=== PATIENT | female | born 1990 | race African-American/Black ===

== ENCOUNTER 2020-04-12 14:24 | Inpatient (IN) | payer SELFPAY ==
[2020-04-12 14:50] VITALS: BMI 22.1
[2020-04-12] MEDS ORDERED: SODIUM CHLORIDE 1,000 ML IV STA (15:15)
[2020-04-12 16:22] LABS: BASO % 0.8 % (0-2.0); EOS % 1.2 % (0-4.5); HEMATOCRIT 23.3 % (32.4-45.2); HEMOGLOBIN 7.4 GM/dL (10.7-15.3); LYMPH % 31.2 % (8-40); MCH 24.2 pg (25.7-33.7); MCHC 31.7 g/dl (32.0-36.0); MEAN CELL VOLUME 76.2 fl (80-96); MEAN PLT VOLUME 9.7 fl (7.5-11.1); MONO % 5.4 % (3.8-10.2); NEUT % 61.4 % (42.8-82.8); PLATELET COUNT 375 K/MM3 (134-434); RBC 3.06 M/mm3 (3.60-5.2); RDW 16.7 % (11.6-15.6); WHITE BLOOD COUNT 5.4 K/mm3 (4.0-10.0)
[2020-04-12 16:30] LABS: INR 0.94 (0.83-1.09); PROTHROMBIN TIME (PATIENT) 11.6 SEC (9.7-13.0)
[2020-04-12 16:34] LABS: POTASSIUM 4.9 mmol/L (3.5-5.1)
[2020-04-12 16:37] LABS: CALCIUM 8.9 mg/dL (8.5-10.1)
[2020-04-12 16:38] LABS: BLOOD UREA NITROGEN 12.1 mg/dL (7-18)
[2020-04-12 16:41] LABS: CREATININE 0.9 mg/dL (0.55-1.3)
[2020-04-12 16:43] LABS: BILIRUBIN,TOTAL 0.4 mg/dL (0.2-1); TOT PROT 8.5 g/dl (6.4-8.2)
[2020-04-13 08:12] LABS: HEMATOCRIT 27.3 % (32.4-45.2); HEMOGLOBIN 9.2 GM/dL (10.7-15.3); MCH 25.6 pg (25.7-33.7); MCHC 33.8 g/dl (32.0-36.0); MEAN CELL VOLUME 75.6 fl (80-96); MEAN PLT VOLUME 8.9 fl (7.5-11.1); PLATELET COUNT 323 K/MM3 (134-434); RBC 3.61 M/mm3 (3.60-5.2); RDW 17.3 % (11.6-15.6); WHITE BLOOD COUNT 6.9 K/mm3 (4.0-10.0)
[2020-04-13 08:27] LABS: POTASSIUM 4.1 mmol/L (3.5-5.1)
[2020-04-13 08:33] LABS: CALCIUM 8.4 mg/dL (8.5-10.1)
[2020-04-13 08:34] LABS: BLOOD UREA NITROGEN 10.4 mg/dL (7-18); MAGNESIUM 2.1 mg/dL (1.8-2.4)
[2020-04-13 08:37] LABS: CREATININE 0.8 mg/dL (0.55-1.3)
[2020-04-13] MEDS ORDERED: FERRIC CARBOXYMALTOSE 750 MG in SODIUM CHLORIDE 250 ML IVPB ONE (12:54)
[2020-04-13 18:37] VITALS: BP 124/62; PULSE 74; TEMP 97.9
== END 2020-04-13 16:25 | disposition home or self-care (01) | DRG 663 ==
LOC: JER 14:24 → JERBED 19:09
PROVIDERS: ADMIT Internal Medicine; ATTEND Internal Medicine
PROC: 30233N1 Transfusion of Nonautologous Red Blood Cells into Peripheral Vein, Percutaneous Approach (ICD-10-PCS; principal; 2020-04-12)
DX: D64.9 Anemia, unspecified (principal); N93.8 Other specified abnormal uterine and vaginal bleeding; R53.1 Weakness; R06.02 Shortness of breath; D25.9 Leiomyoma of uterus, unspecified
CPT/HCPCS: 36415; 36430; 71046-TC-FY; 76830-TC; 76856-TC; 80048; 80053; 83540; 83550; 83735; 84703; 85025; 85027; 85610; 86850; 86900; 86901; 86922; 93005; 93010; 99285-25; C9803; J1439; P9058; U0003

== ENCOUNTER 2020-04-21 12:43 | Day surgery (SDC) | payer SELFPAY ==
[2020-04-21] MEDS ORDERED: FERRIC CARBOXYMALTOSE 750 MG in SODIUM CHLORIDE 250 ML IVPB ONE (13:15)
[2020-04-21 14:03] VITALS: TEMP 98.1
[2020-04-21 14:06] VITALS: BP 125/84; PULSE 84
== END 2020-04-21 14:10 | disposition home or self-care (01) ==
LOC: JONCNONCHE 12:43
PROVIDERS: ATTEND Internal Medicine
PROC: 3E033GC Introduction of Other Therapeutic Substance into Peripheral Vein, Percutaneous Approach (ICD-10-PCS; principal; 2020-04-21)
DX: D50.9 Iron deficiency anemia, unspecified (principal)
CPT/HCPCS: 96365; J1439

== ENCOUNTER 2021-03-10 11:02 | Emergency (ER) | payer OTHER ==
[2021-03-10 11:09] VITALS: BP 157/84; PULSE 95; TEMP 98; BMI 20.9
[2021-03-10] MEDS ORDERED: DOXYCYCLINE HYCLATE 100 MG CAPSULE PO ONE (13:31)
== END 2021-03-10 14:33 | disposition home or self-care (01) ==
LOC: JERFT 11:02
DX: Z20.2 Contact with and (suspected) exposure to infections with a predominantly sexual mode of transmission (principal)
CPT/HCPCS: 36415; 84703; 87491; 87591; 99284-25

== ENCOUNTER 2021-08-07 20:22 | Emergency (ER) | payer OTHER ==
[2021-08-07 20:38] VITALS: BP 149/97; PULSE 89; TEMP 98.4; BMI 21.6
[2021-08-07 23:18] LABS: BASO % 0.4 % (0-2.0); HEMATOCRIT 38.2 % (32.4-45.2); HEMOGLOBIN 12.6 GM/dL (10.7-15.3); MCH 28.9 pg (25.7-33.7); MEAN CELL VOLUME 87.7 fl (80-96); MEAN PLT VOLUME 7.9 fl (7.5-11.1); NEUT % 57.6 % (42.8-82.8); PLATELET COUNT 340 10^3/uL (134-434); RBC 4.36 M/mm3 (3.60-5.2); RDW 13.1 % (11.6-15.6); WHITE BLOOD COUNT 7.8 K/mm3 (4.0-10.0)
[2021-08-07 23:30] LABS: INR 0.97 (0.83-1.09); PROTHROMBIN TIME (PATIENT) 11.1 SEC (9.7-13.0)
[2021-08-07 23:33] LABS: ACTIVATED PTT 38.1 SECONDS (25.2-36.5)
[2021-08-07 23:48] LABS: ALBUMIN 3.9 g/dl (3.4-5.0); CALCIUM 9.2 mg/dL (8.5-10.1)
[2021-08-07 23:49] LABS: BLOOD UREA NITROGEN 11.4 mg/dL (7-18)
[2021-08-07 23:50] LABS: MAGNESIUM 2.1 mg/dL (1.8-2.4)
[2021-08-07 23:51] LABS: CREATININE 0.8 mg/dL (0.55-1.3)
[2021-08-07 23:53] LABS: BILIRUBIN,TOTAL 0.3 mg/dL (0.2-1); TOT PROT 7.8 g/dl (6.4-8.2)
== END 2021-08-08 00:17 | disposition home or self-care (01) ==
LOC: JER 20:22
DX: R07.89 Other chest pain (principal)
CPT/HCPCS: 36415; 71046-TC-FY; 80053; 83735; 84484; 85025; 85610; 85730; 93005; 93010; 99285-25